=== PATIENT | male | born 1990 | race Caucasian/White ===

== ENCOUNTER 2019-08-06 14:31 | Emergency (ER) | payer BC, OTHER ==
[~2019-08-06] VITALS: Ht 172.7 cm; Wt 116.3 kg
[2019-08-06 14:35] VITALS: BP 147/87
[2019-08-06] MEDS ORDERED: HYDROcodone/APAP 7.5-325MG/15ML UDC ONE (15:03)
[2019-08-06] MEDS ORDERED: ACETAMINOPHEN 500 MG TABLET ONE ×2 (15:03→15:09)
--- NOTE | 2019-08-06 15:11 | NUR ---
PATIENT MEDICATED PER [facility].
[2019-08-06] MEDS ORDERED: HYDROcodone/APAP 7.5-325MG/15ML UDC PO ONE (15:30)
[2019-08-06] MEDS ORDERED: ACETAMINOPHEN 500 MG TABLET PO ONE (15:30)
== END 2019-08-06 15:28 | disposition home or self-care (01) ==
LOC: ED 15:20
DX: J02.0 Streptococcal pharyngitis (principal)
CPT/HCPCS: 99283

== ENCOUNTER 2019-08-17 04:09 | Emergency (ER) | payer BC ==
[~2019-08-17] VITALS: Ht 172.7 cm; Wt 115.0 kg
[2019-08-17] MEDS ORDERED: MORPHINE SULFATE 4 MG/ML, 1ML IVPush PRN (04:30)
[2019-08-17] MEDS ORDERED: KETOROLAC 30 MG/1 ML IVPush ONE (04:30)
[2019-08-17] MEDS ORDERED: ONDANSETRON 2MG/ML, 2ML IVPush ONE (04:30)
[2019-08-17] MEDS ORDERED: SODIUM CHLORIDE FLUSH 10ML SYR IVF ONE (04:30)
[2019-08-17] MEDS ORDERED: ONDANSETRON 2MG/ML, 2ML ONE (04:32)
[2019-08-17] MEDS ORDERED: KETOROLAC 30 MG/1 ML ONE (04:32)
[2019-08-17] MEDS ORDERED: MORPHINE SULFATE 4 MG/ML, 1ML ONE (04:33)
--- NOTE | 2019-08-17 04:41 | NUR ---
pt need pain med before CT.
[2019-08-17 05:05] LABS: BASOPHILS # (AUTO) 0.06 x10^3/uL (0-0.1); BASOPHILS % (AUTO) 1 % (0-1); EOSINOPHILS # (AUTO) 0.14 x10^3/uL (0-0.4); EOSINOPHILS % (AUTO) 1 % (1-7); LYMPHOCYTES # (AUTO) 3.24 x10^3/uL (1-3.4); LYMPHOCYTES % (AUTO) 29 % (22-44); MD NO; MEAN CORPUSCULAR HEMOGLOBIN 31.1 pg (27.5-34.5); MEAN CORPUSCULAR HGB CONC 32.5 g/dL (33.2-36.2); MEAN CORPUSCULAR VOLUME 95.8 fL (81-97); MEAN PLATELET VOLUME 7.7 fL (7.4-10.4); MONOCYTES # (AUTO) 0.91 x10^3/uL (0.2-0.8); MONOCYTES % (AUTO) 8 % (2-9); NEUTROPHILS # (AUTO) 6.72 x10^3/uL (1.8-6.8); NEUTROPHILS % (AUTO) 61 % (42-75); PLATELET COUNT 415 x10^3/uL (130-400); RED BLOOD COUNT 4.64 x10^6/uL (4.38-5.82); RED CELL DISTRIBUTION WIDTH 14.2 % (9.4-14.8)
[2019-08-17 05:11] LABS: ALANINE AMINOTRANSFERASE 83 U/L (12-78); ANION GAP 9 mmol/L (5-15); CALCIUM 8.6 mg/dL (8.5-10.1); CHLORIDE 110 mmol/L (98-107); CREATININE 1.47 mg/dL (0.7-1.3)
[2019-08-17 05:13] LABS: ALKALINE PHOSPHATASE 73 U/L (45-117); BILIRUBIN,TOTAL 0.3 mg/dL (0.2-1.0); TOTAL PROTEIN 8.3 g/dL (6.4-8.2)
[2019-08-17 06:45] VITALS: BP 128/78
== END 2019-08-17 06:48 | disposition home or self-care (01) ==
LOC: ED 05:29
DX: N20.1 Calculus of ureter (principal)
CPT/HCPCS: 36415; 74176; 80053; 83690; 85025; 96374; 96375; 99284; J1885; J2270; J2405